=== PATIENT | male | born 1985 | race Caucasian/White ===

== ENCOUNTER 2022-11-06 05:46 | Inpatient (IN) | payer OTHER ==
[~2022-11-06] VITALS: Ht 180.3 cm; Wt 88.2 kg
[2022-11-06] VITALS (8 sets, daily range): BP systolic 142–154; BP diastolic 96–116; PULSE 111–134; TEMP 97.4–99.1
[~2022-11-06 05:46] MED LIST: ZOFRAN ODT4 MG PO
[2022-11-06 06:00] LABS: BASO % 0.3 % (0.0-2.0); EOS % 0.2 % (0.0-4.0); GRAN # 12.3 K/mm3 (1.4-6.5); LYMPH # 1.1 K/mm3 (1.2-3.4); LYMPH % 7.7 % (20.0-51.0); MEAN CELL VOLUME 99 fl (80.0-100.0); MEAN CORPUSCULAR HGB CONC 35 g/dl (33.0-37.0); MEAN PLATELET VOLUME 9.9 fl (7.4-10.4); MONO # 0.9 K/mm3 (0.1-0.6); MONO % 6.3 % (1.7-9.3); PLATELET COUNT 160 K/mm3 (130-400); RED BLOOD COUNT 5.33 M/mm3 (4.20-5.60); REDCELL DISTRIBUTION WIDTH-CV 12.8 % (11.5-14.5)
[2022-11-06 06:03] LABS: HEMATOCRIT 52.8 % (42.0-52.0); HEMOGLOBIN 18.6 g/dl (13.5-18.0); MEAN CORPUSCULAR HEMOGLOBIN 35 pg (27-31)
[2022-11-06 06:19] LABS: BILIRUBIN,TOTAL 1.8 mg/dL (0.2-1.2); CALCIUM 8.4 mg/dL (8.4-10.2); CREATININE, serum 1.81 mg/dL (0.72-1.25); POTASSIUM 4.5 mmol/L (3.5-4.5)
[2022-11-06 06:36] LABS: COLLECTION METHOD CLEAN CATCH
[2022-11-06 06:57] LABS: URINE COLOR Yellow (YELLOW)
[2022-11-06 06:58] LABS: URINE APPEARANCE Clear (CLEAR/HAZY); URINE BLOOD 2+ (NEGATIVE); URINE GLUCOSE TRACE (NEGATIVE); URINE KETONE Negative (NEGATIVE); URINE NITRATE Negative (NEGATIVE); URINE PROTEIN(semi-quant) 3+ (NEGATIVE); URINE UROBILINOGEN 0.2 E.U/dL (0.2-1.0)
[2022-11-06 06:59] LABS: MUCOUS Present (NOT PRESENT); SQUAMOUS EPITHELIAL 0-2 /hpf (0-10); URINE BACTERIA None Seen /hpf (NONE SEEN); URINE RBC 0-2 /hpf (0-2)
[2022-11-06] MEDS ORDERED: SYNTHROID0.05 MG/TA PO (08:25)
[2022-11-06] MEDS ORDERED: NEXIUM 40MG40 MG PO (08:26)
[2022-11-06] MEDS ORDERED: D3-5050000 IU PO (08:26)
[2022-11-06] MEDS ORDERED: PRINIVIL20 MG PO (08:27)
[2022-11-06] MEDS ORDERED: HCTZ12.5TAB PO (08:27)
--- NOTE | 2022-11-06 11:21 | NUR ---
Pt to room 314, on medical floor. Oriented to room & call light system. Pt is A&Ox4. Upper lobes clear, R lower lobe diminished upon lung auscultation. Pt is tachycardic. C/o dull ABD pain 6/10; pt received morphine prior to arrival to floor. BSx4. INT in L AC patent, no edema or redness. Rad/ped pulses noted, strong. Call light within reach.
--- NOTE | 2022-11-06 11:41 | NUR ---
Pt has been hypertensive (150s/100s) and tachycardic (100s-120s) since arrival. Dr.Singh rivera.
--- NOTE | 2022-11-06 15:06 | NUR ---
THIS RN REVIEWED ADMISSION INTAKE AND ASSESSMENT. THIS RN AGREES WITH [facility]'S ASSESSMENTS.
--- NOTE | 2022-11-06 19:50 | NUR ---
Pt in restroom w/ call light pulled upon this nurse's entry to room. Pt is running tachycardic in the 130's-140's per central processing technician. Pt is currently A&Ox4 w/o distress. Pt ambulates back to bed w/ steady gait. Pt reports pain w/ activity. 8/10 dull/aching pain to abd. VS obtained and elevated. CHRISTINE Nichols present w/ this nurse to perform shift assessment. Respirations are shallow and tachypneic. Pt reports this is d/t pain. No cyanosis to lips or extremities noted. Cap refill<3secs. Pt is on room air. Pt does have some moisture to hands and forehead. He reports restlessness and concern about sleep this night. CIWA score 8. PRN Morphine and Ativan admin by CHRISTINE Nichols. Pt has no complaints or concerns. Will monitor closely.
[2022-11-06 23:54] LABS: COLLECTION METHOD CLEAN CATCH
[2022-11-07] VITALS (19 sets, daily range): BP systolic 117–147; BP diastolic 68–101; PULSE 110–138; TEMP 97.5–100.8
[2022-11-07 00:02] LABS: AMORPHOUS CRYSTAL Present (NOT PRESENT); SQUAMOUS EPITHELIAL None Seen /hpf (0-10); URINE BACTERIA None Seen /hpf (NONE SEEN); URINE RBC None Seen /hpf (0-2); URINE WBC 0-2 /hpf (0-2)
[2022-11-07 00:03] LABS: URINE APPEARANCE Cloudy (CLEAR/HAZY); URINE BLOOD 2+ (NEGATIVE); URINE COLOR Amber (YELLOW); URINE GLUCOSE 2+ (NEGATIVE); URINE KETONE TRACE (NEGATIVE); URINE NITRATE Negative (NEGATIVE); URINE PROTEIN(semi-quant) 3+ (NEGATIVE); URINE UROBILINOGEN 0.2 E.U/dL (0.2-1.0)
[2022-11-07 00:06] LABS: TRICYCLIC ANTIDEPRESS URINE NEGATIVE
--- NOTE | 2022-11-07 00:38 | NUR ---
Pt lying supine in bed groaning upon this nurse's entry to room. Pt is reporting severe abd pain that is increasing d/t feeling as though he may need to have a BM. VS remain elevated, but remain below parameters for PRN intervention. Pt denies nausea or vomiting, chest pain, palpitations, lightheadedness, dizziness, and dyspnea. Pt does report occassional SOA d/t abd pain that resolves w/ repositioning. Pt reports that he is feeling "very anxious" and is only sleeping for "5 minutes at a time and wakes up from intense dreams". CIWA score 9. Pt requesting PRN morphine for pain. Will communicate this information w/ CHRISTINE Nichols.
--- NOTE | 2022-11-07 02:26 | NUR ---
Pt lying supine in bed w/ eyes closed in dark room upon this nurse's entry into room. Arouses w/ ease. VS obtained and improving. CIWA score 5. Pt does cont to report abd pain that is causing difficulty w/ sleep. Provider, CHUYITA Reyes, notified of this. New order to be entered for PRN pain medication.
--- NOTE | 2022-11-07 06:11 | NUR ---
Pt sitting up in bed upon this nurse's entry to room. A&Ox4. Respirations are even and unlabored. Pt does have some diaphoresis to forehead and palms. Pt reports 7/10 abd pain aching and is requesting PRN morphine. Pt notified next dose available @ 0637 and is agreeable to this. AM medication admin PO w/o difficulty. CIWA score 3. Pt denies any nausea, lightheadedness, dizziness, or palpitations. No complaints or concerns voiced. Call light in reach.
[2022-11-07 06:37] LABS: HEMATOCRIT 45.5 % (42.0-52.0); MEAN CELL VOLUME 98 fl (80.0-100.0); MEAN CORPUSCULAR HEMOGLOBIN 35 pg (27-31); MEAN CORPUSCULAR HGB CONC 35 g/dl (33.0-37.0); MEAN PLATELET VOLUME 11.4 fl (7.4-10.4); PLATELET COUNT 90 K/mm3 (130-400); RED BLOOD COUNT 4.64 M/mm3 (4.20-5.60); REDCELL DISTRIBUTION WIDTH-CV 12.9 % (11.5-14.5)
[2022-11-07 06:38] LABS: HEMOGLOBIN 16.1 g/dl (13.5-18.0)
[2022-11-07 07:00] LABS: ALBUMIN 2.6 gm/dL (3.5-5.0); BILIRUBIN,TOTAL 1.7 mg/dL (0.2-1.2); CALCIUM 6.1 mg/dL (8.4-10.2); CREATININE, serum 0.97 mg/dL (0.72-1.25); MAGNESIUM 1.5 mg/dL (1.6-2.6); POTASSIUM 4.1 mmol/L (3.5-4.5)
[2022-11-07 07:21] LABS: BAND 41 % (0-10); LYMPHOCYTE 8 % (20.0-51.0); METAMYELOCYTE 1 % (0-0); NEUTROPHILS 47 % (42.0-75.2); PLATELET ESTIMATE DECREASED (NORMAL)
--- NOTE | 2022-11-07 07:40 | NUR ---
Pt is asleep upon entering room, easily aroused. Although speech incomprehensible during conversation. Pt is lethargic, admits to not sleeping well last night. Morning medication administered per eMAR. Shift assessment completed. Pt on 2L per NC with O2 sats WNL of 96%. Attempted to remove oxygen, pt states he feels "more comfortable" with the O2 on. Telemetry remains on - ST. LR infusing at 125mL/hr in L AC; patent, no edema or redness. Pt c/o ABD pain, states the pain is a 4/10 when lying still & the pain will increase to a 9/10 on movement, PRN morphine recieved at 0646 this am. Call light within reach.
--- NOTE | 2022-11-07 10:42 | NUR ---
Initial visit; Patient thanked Trucking Manager for looking in on him and offering God's blessings and keeping him in her prayers.
--- NOTE | 2022-11-07 12:00 | NUR ---
Pt remains on CIWA protocol. Pt remains lethargic, diaphoretic, tachycardic, hypertensive, and continues to lack an appetite. Pt O2 sat on 88-89% on RA, requiring 2L per NC. Scoring 1 on CIWA protocol.
--- NOTE | 2022-11-07 15:20 | NUR ---
SW met with patient to complete intake and discuss discharge plan. Patient reports that he lives at home alone in [place]. He is fully independent with his ADL's and IADL's at home and has no DME needs to assist with mobility. No home oxygen needs. Patient states that he utilizes [facility] for PCP care but is unable to tell me the physicians name. He utilizes [facility] for prescriptions. Patient does not have a DPOA-HC established. He is not legally and has no children. His legal next of kin would be his mother Neris ([phone]). SW discussed alcohol use treatment, which patient verbalizes he does not feel like he needs. Educated him that if he decides he wants resources, that we can assist him at the time of discharge. Discharge plan: Home
--- NOTE | 2022-11-07 16:27 | NUR ---
Temp - 100.8, PRN tylenol administered.
--- NOTE | 2022-11-07 17:49 | NUR ---
Pt continued to c/o ABD, encouraged sitting position or leaning forward. States repositioning provided "alot of relief."
--- NOTE | 2022-11-07 20:30 | NUR ---
Pt lying in bed w/ HOB elevated approx 40 degrees. PCT @ bedside collecting VS. VS have improved from previous night. A&Ox4. Respirations are shallow but unlabored. Pt reporting 1/10 pain @ rest to abd, but 8/10 pain when repositioning self to abd. Pain is described as aching/pressure. PRN morphine requested by pt and administered by CHRISTINE Nichols. PM scheduled medications admin PO w/o difficulty. Shift assessment performed. Abd is disteneded and firm. Hypoactive bowel sounds auscultated to bilateral lower quads. Audible bilateral upper quadrants. Pt denies N/V/D and is passing small amounts of flatus and belching. No complaints or concerns voiced. Call light in reach.
[2022-11-08] VITALS (16 sets, daily range): BP systolic 117–131; BP diastolic 77–89; PULSE 102–113; TEMP 97.6–98.7
--- NOTE | 2022-11-08 00:58 | NUR ---
Pt lying supine in bed w/ eyes closed in dark room. HOB elevated to approx 45 degrees. Arouses w/ ease. A&OX4. Pt reports pain has decreased to a 1/10 to abd. Pt reports pain increases w/ movement. Pt is c/o insomnia and inquiring about OTC for sleep. Additionally, pt reporting that he is experiencing vivid dreams w/ occassional nightmares. Pt reports that @ times he is unable to differentiate the dream from reality momentarily, but is able to reorient self. CIWA score 1. Respirations are shallow and unlabored. Pt has O2 on via NC @ 1.5L. No needs or concerns voiced. Call light in reach.
--- NOTE | 2022-11-08 04:53 | NUR ---
Pt sitting up in bed w/ HOB elevated to approx 45 degreese. A&Ox4 Respirations are shallow and unlabored on O2 @ 1.5L via NC. Pt is reporting abd apain 1/10 awching/pressure that increases w/ acivity. Pt is not due for another dose of PRN morphine and is requesting PRN APAP. PRN Apap administered PO w/o difficulty. CIWA score 0. Pt denies any other complaints or concerns. Call light in reach.
[2022-11-08 06:19] LABS: MEAN CELL VOLUME 101 fl (80.0-100.0); MEAN CORPUSCULAR HEMOGLOBIN 35 pg (27-31); MEAN CORPUSCULAR HGB CONC 34 g/dl (33.0-37.0); MEAN PLATELET VOLUME 11.5 fl (7.4-10.4); PLATELET COUNT 82 K/mm3 (130-400); RED BLOOD COUNT 4.07 M/mm3 (4.20-5.60); REDCELL DISTRIBUTION WIDTH-CV 12.7 % (11.5-14.5)
[2022-11-08 06:23] LABS: HEMOGLOBIN 14.1 g/dl (13.5-18.0)
[2022-11-08 06:38] LABS: ALBUMIN 2.1 gm/dL (3.5-5.0); BILIRUBIN,TOTAL 1.5 mg/dL (0.2-1.2); CREATININE, serum 0.92 mg/dL (0.72-1.25); POTASSIUM 3.7 mmol/L (3.5-4.5); TOTAL PROTEIN 5.7 gm/dL (6.2-8.1)
[2022-11-08 06:41] LABS: CALCIUM 5.7 mg/dL (8.4-10.2)
[2022-11-08 06:50] LABS: BAND 12 % (0-10); LYMPHOCYTE 16 % (20.0-51.0); NEUTROPHILS 63 % (42.0-75.2); PLATELET ESTIMATE DECREASED (NORMAL)
--- NOTE | 2022-11-08 08:25 | NUR ---
SHIFT ASSESSMENT COMPLETED AND MORNING MEDICATIONS ADMINISTERED PER ORDER. PATIENT IS ALERT AND ORIENTED X4. C/O PAIN 1/10 AT REST, 7/10 WITH MOVEMENT. FLUIDS CHANGED TO NS AT 125 PER ORDER. DENIES NEEDS AT THIS TIME. CALL LIGHT WITHIN REACH.
--- NOTE | 2022-11-08 14:06 | NUR ---
PER CT, PATIENT WILL BE GOING TO CT IN LESS THAN 30 MINUTES. WILL START FLAGYL UPON RETURN. DENIES NEEDS AT THIS TIME. FAMILY AT BEDSIDE.
--- NOTE | 2022-11-08 18:04 | NUR ---
PER PRODUCT SAFETY OFFICER, TWO LAB TECHS ATTEMPTED TO OBTAIN 1400 LAB DRAW BUT WERE UNSUCCESSFUL. CHRISTINE COWART ABLE TO GET LAB DRAW FOR 1800 LABS.
--- NOTE | 2022-11-08 20:20 | NUR ---
Pt lying in bed in dark room w/ HOB elevated to approx 45 degrees upon this nurse's entry to room. A&Ox4. Respirations are even and unlabored on room air. Pt is report pain to abd aching/pressure 5/10 and is requesting PRN roxicodone. Scheduled PM medications and PRN admin PO w/o difficulty. Shift assessment performed. Lung sounds abnormal. Diminished bilat lower lobes and rhonchi in the bilat upper lobes. Pt denies SOA or cough. CAp refill<3seconds. Bowel sounds are hypoactive to the upper quads, but active in the bilat lower quads. Abd is mildly distended and firm. TTP. Passing flatus and belching. CIWA score 0. No complaints or concerns voiced. Call light in reach.
[2022-11-09] VITALS (18 sets, daily range): BP systolic 120–142; BP diastolic 74–88; PULSE 96–116; TEMP 97.7–98.9
--- NOTE | 2022-11-09 06:15 | NUR ---
Pt has been monitored throughout night by this nurse. Pt is currently lying supine in bed w/ HOB elevated to approx 30 degrees. Respirations are even and unlabored. CIWA score 0. AM medications admin PO w/o difficulty. Pt denies any pain, nausea, vomitting, or SOA. No complaints or concerns voiced. Call light in reach.
[2022-11-09 07:27] LABS: ALBUMIN 2.2 gm/dL (3.5-5.0); BILIRUBIN,TOTAL 1.8 mg/dL (0.2-1.2); CALCIUM 6.9 mg/dL (8.4-10.2); CREATININE, serum 0.92 mg/dL (0.72-1.25); POTASSIUM 3.8 mmol/L (3.5-4.5); TOTAL PROTEIN 6.2 gm/dL (6.2-8.1)
[2022-11-09 07:31] LABS: HEMATOCRIT 38.1 % (42.0-52.0); HEMOGLOBIN 13.3 g/dl (13.5-18.0); MEAN CELL VOLUME 100 fl (80.0-100.0); MEAN CORPUSCULAR HEMOGLOBIN 35 pg (27-31); MEAN CORPUSCULAR HGB CONC 35 g/dl (33.0-37.0); MEAN PLATELET VOLUME 10.9 fl (7.4-10.4); PLATELET COUNT 103 K/mm3 (130-400); RED BLOOD COUNT 3.83 M/mm3 (4.20-5.60); REDCELL DISTRIBUTION WIDTH-CV 12.6 % (11.5-14.5)
[2022-11-09 07:53] LABS: BAND 14 % (0-10); LYMPHOCYTE 3 % (20.0-51.0); NEUTROPHILS 70 % (42.0-75.2)
[2022-11-09 07:54] LABS: PLATELET ESTIMATE NORMAL (NORMAL)
--- NOTE | 2022-11-09 08:21 | NUR ---
Patient unable to swallow efficiently, states he has problems with his gag reflex. He vomited after taking some pills. Apple sauce and crushed the rest of pills, no difficulties. Alert and oriented x 4, tachycardic, telemetry in place. Assessment completed. States he wants to go home today. No further needs at this time. Call light within reach.
--- NOTE | 2022-11-09 22:22 | NUR ---
Patient assessed around 2009. Alert and oriented, and able to make needs known. Denied having pain and discomfort at that time, but did call shortly after for PRN Acetaminophen for pain to abdomen, rated as a 2 after going to the bathroom. Given per orders. Not scoring high enough on detox protocol to need any Ativan. Patient received decreased dose of Librium per orders. Tolerated general diet well, denies having any nausea. Voices no questions, needs, or concerns at this time. In bed with call light within reach.
[2022-11-10] VITALS (11 sets, daily range): BP systolic 120–141; BP diastolic 69–78; PULSE 101–113; TEMP 98.2–99
--- NOTE | 2022-11-10 05:39 | NUR ---
Has received PRN Acetaminophen as requested for mild pain during the night. Did require oxygen at 1 L/min via NC while sleeping, as patient desated to the upper 80s. Denies SOB and dyspnea. Patient in bed with call light within reach.
[2022-11-10 07:07] LABS: HEMOGLOBIN 11.5 g/dl (13.5-18.0); MEAN CELL VOLUME 97 fl (80.0-100.0); MEAN CORPUSCULAR HEMOGLOBIN 35 pg (27-31); MEAN CORPUSCULAR HGB CONC 36 g/dl (33.0-37.0); MEAN PLATELET VOLUME 10.8 fl (7.4-10.4); PLATELET COUNT 98 K/mm3 (130-400); RED BLOOD COUNT 3.32 M/mm3 (4.20-5.60); REDCELL DISTRIBUTION WIDTH-CV 12.6 % (11.5-14.5)
[2022-11-10 07:10] LABS: HEMATOCRIT 32.1 % (42.0-52.0)
[2022-11-10 07:26] LABS: BILIRUBIN,TOTAL 1.4 mg/dL (0.2-1.2); CALCIUM 7.5 mg/dL (8.4-10.2); CREATININE, serum 0.77 mg/dL (0.72-1.25); MAGNESIUM 2.8 mg/dL (1.6-2.6); POTASSIUM 3.3 mmol/L (3.5-4.5); TOTAL PROTEIN 5.9 gm/dL (6.2-8.1)
--- NOTE | 2022-11-10 07:30 | NUR ---
Call placed to DR London to report lab result for today, choride 89.
[2022-11-10 07:37] LABS: BAND 17 % (0-10); LYMPHOCYTE 12 % (20.0-51.0); NEUTROPHILS 52 % (42.0-75.2); PLATELET ESTIMATE DECREASED (NORMAL)
--- NOTE | 2022-11-10 08:00 | NUR ---
Patient is resting in bed, alert and oriented x 4, states he wants to go home. Telemetry inplace, NSR. Assessment completed, no further needs at this time. Call light within reach.
--- NOTE | 2022-11-10 14:19 | NUR ---
SW notified by RT that the patient will not need oxygen at the time of discharge. RN updated. Patients mother at bedside.
--- NOTE | 2022-11-10 15:00 | NUR ---
Patient and family were provided with discharge information, all questions answered. Telemetry and IV access were discontinued. Pt taken by wheelchair to the patient entrance.
== END 2022-11-10 15:15 | disposition home or self-care (01) | DRG 438 ==
LOC: COL.ER 05:46 → MEDICAL 10:33
PROVIDERS: Emergency Medicine; Physician Assistant; ADMIT Internal Medicine
DX: K85.20 Alcohol induced acute pancreatitis without necrosis or infection (principal); J96.01 Acute respiratory failure with hypoxia; N17.9 Acute kidney failure, unspecified; F10.239 Alcohol dependence with withdrawal, unspecified; K56.7 Ileus, unspecified; E87.1 Hypo-osmolality and hyponatremia; J90 Pleural effusion, not elsewhere classified; D69.6 Thrombocytopenia, unspecified; R73.9 Hyperglycemia, unspecified; I16.0 Hypertensive urgency; E83.42 Hypomagnesemia; E83.51 Hypocalcemia; K59.00 Constipation, unspecified; F32.A Depression, unspecified; Z88.1 Allergy status to other antibiotic agents
CPT/HCPCS: C9113; G0378; J0612; J0744; J1650; J1815; J1940; J2060; J2270; J2405; J3475; J7030; J7120; Q9967